=== PATIENT | male | born 1980 | race Caucasian/White ===

== ENCOUNTER → 2016-05-12 | Day surgery (SDC) | payer OTHER | END | disposition home or self-care (01) | LOC: FAS 10:03 | DX: M25.861 Other specified joint disorders, right knee (principal); M79.4 Hypertrophy of (infrapatellar) fat pad; K21.9 Gastro-esophageal reflux disease without esophagitis; Z87.442 Personal history of urinary calculi | CPT/HCPCS: 93005; J1170; J2704; J3010 ==